=== PATIENT | male | born 1990 | race Caucasian/White ===

== ENCOUNTER 2016-12-18 23:50 | Emergency (ER) | payer SELFPAY ==
[~2016-12-18] VITALS: Ht 172.7 cm; Wt 58.2 kg
[2016-12-18 23:53] VITALS: Ht 172.7 cm; Wt 58.2 kg
[2016-12-19] MEDS ORDERED: ONDANSETRON 4 MG INJ IV STA (01:43)
[2016-12-19] MEDS ORDERED: KETOROLAC 15 MG INJ IV STA (01:43)
--- NOTE | 2016-12-19 01:48 | ERD ---
ER Documentation Chief Complaint Chief Complaint epigastric pain since yesterday, worse today HPI 26-year-old male patient presents to emergency department for evaluation of epigastric pain, sx started Tuesday after eating a [employer] cheese stake sandwich, patient reports that he is having shortness of breath secondary to the burning sensation in his chest. Patient denies any dizziness, palpitations, or cardiovascular history. ROS All systems reviewed and are negative except as per history of present illness. Allergies Allergies: Coded Allergies: No Known Drug Allergies (Verified Allergy, Unknown, 12/18/16) PMhx/Soc Medical and Surgical Hx: pt denies Medical Hx, pt denies Surgical Hx Hx Alcohol Use: Yes (occassional) Hx Substance Use: No Hx Tobacco Use: No Smoking Status: Never smoker Physical Exam Vitals Vital Signs Date Time Temp Pulse Resp B/P Pulse Ox O2 Delivery O2 Flow Rate FiO2 12/18/16 23:53 98.7 95 20 136/84 100 Stable, triage notes reviewed Physical Exam Const: Nourished well appearing 26-year-old male patient obvious discomfort no acute distress Head: Eyes: ENT: Normal External Ears, Nose and Mouth. Neck: Resp: Clear to auscultation bilaterally Cardio: 1-S2, no S3-S4 regular rate and rhythm, no murmurs Abd: Soft, epigastric tenderness no Ivey sign, skin: Back: Ext: Neur: Awake and alert Psych: Normal Mood and Affect Result Diagram: 12/19/16 0154 12/19/164 Results 24 hrs Laboratory Tests Test 12/19/16 01:52 12/19/16 01:54 Urine Color YELLOW Urine Clarity CLOUDY Urine pH 6.0 Urine Specific [place] 1.029 Urine Ketones NEGATIVEmg/dL Urine Nitrite NEGATIVEmg/dL Urine Bilirubin NEGATIVEmg/dL Urine Urobilinogen 1+mg/dL Urine Leukocyte Esterase NEGATIVELeu/ul Urine Microscopic RBC 1/HPF Urine Microscopic WBC 2/HPF Urine Mucus MANY/HPF Urine Hemoglobin NEGATIVEmg/dL Urine Glucose NEGATIVEmg/dL Urine Total Protein NEGATIVEmg/dl White Blood Count 8.410^3/ul Red Blood Count 5.2510^6/ul Hemoglobin 14.8g/dl Hematocrit 43.5% Mean Corpuscular Volume 82.9fl Mean Corpuscular Hemoglobin 28.2pg Mean Corpuscular Hemoglobin Concent 34.0g/dl Red Cell Distribution Width 13.6% Platelet Count 69812^3/UL Mean Platelet Volume 11.6fl Neutrophils % 75.2% Lymphocytes % 17.1% Monocytes % 6.4% Eosinophils % 0.6% Basophils % 0.2% Nucleated Red Blood Cells % 0.0/100WBC Neutrophils # 6.310^3/ul Lymphocytes # 1.410^3/ul Monocytes # 0.510^3/ul Eosinophils # 0.110^3/ul Basophils # 0.010^3/ul Nucleated Red Blood Cells # 0.010^3/ul Sodium Level 145mmol/L Potassium Level 3.5mmol/L Chloride Level 103mmol/L Carbon Dioxide Level 30mmol/L Anion Gap 16 Blood Urea Nitrogen 19mg/dl Creatinine 0.82mg/dl Glucose Level 102mg/dl Calcium Level 8.9mg/dl Total Bilirubin 0.4mg/dl Direct Bilirubin 0.00mg/dl Indirect Bilirubin 0.4mg/dl Aspartate Amino Transf (AST/SGOT) 32IU/L Alanine Aminotransferase (ALT/SGPT) 52IU/L Alkaline Phosphatase 70IU/L Total Protein 7.7g/dl Albumin 4.7g/dl Globulin 3.00g/dl Albumin/Globulin Ratio 1.56 Lipase 52U/L Current Medications Medications (Trade) Dose Ordered Sig/Sonya Route PRN Reason Start Time Stop Time Status Last Admin Dose Admin Ondansetron HCl (Zofran Inj) 4 mg ONCE STAT IV 12/19/16 01:43 12/19/16 01:47 DC 12/19/16 02:10 Ketorolac Tromethamine (Toradol) 15 mg ONCE STAT IV 12/19/16 01:43 12/19/16 01:47 DC 12/19/16 02:10 Pantoprazole (Protonix Iv) 40 mg ONCE ONCE IV 12/19/16 02:00 12/19/16 02:01 DC 12/19/16 02:11 Miscellaneous Medication (Gi Cocktail (2)) 40 ml ONCE ONCE PO 12/19/16 02:00 12/19/16 02:01 DC 12/19/16 02:11 Interpretation text CBC shows no evidence of hemorrhage or infection Chemistry shows no evidence of significant electrolyte abnormalities or renal insufficiency Liver function tests shows no evidence of acute biliary or hepatic dysfunction Lipase shows no evidence of acute pancreatitis Procedures/MDM A 6-year-old male patient presents to emergency department for epigastric pain that started on Tuesday after eating chili cheese steak, patient reports shortness of breath, pain in epigastric region, denies sour taste in his mouth or burning in his throat. Patient reports he gets occasional heartburn symptoms but never has had symptoms like this. Emergency room course includes history and physical exam I have low suspicion for acute [place] or acute coronary syndromes, patient treated with GI cocktail, IV Protonix, Zofran, and 15 mg of IV Toradol, routine emergency room labs obtained negative for hemorrhage, infection, electrolyte dysfunction, renal insufficiency, hepatitis, or pancreatitis. Urinalysis negative for evidence of action. Patient reassessed after interventions completed reports improvement of symptoms plan to discharge patient home with Zantac, Protonix, instructed to follow-up with primary care physician for full evaluation and treatment of epigastric pain. Patient is stable with no new complaints during ER course, clinically there is no current evidence to suggest meningitis, sepsis, acute abdomen, acute coronary syndromes , pulmonary embolism or any other emergent condition appearing to require further evaluation or hospitalization. I feel the patient is stable for discharge at this time. I have discussed results, examination findings, the treatment plan with the patient and family present prior to discharge. Indications for emergent reevaluation, side effects of medication were also discussed. All questions were answered. Patient verbalizes understanding and agrees with plan of care. Departure Diagnosis: Primary Impression: Epigastric abdominal pain Condition: Good Patient Instructions: Gerd (Adult), Gerd (Child) Referrals: [facility] Additional Instructions: Thank you for for coming to [facility] for your care today. Please ask your nurse or provider if you have questions about your care today and do not leave until all your questions have been answered. Please use any medications given as directed and follow-up with your doctor (or the doctor you were referred to) in the next 2-3 days. If you do not have a primary care doctor you may follow up at the [facility] (listed below). You may also use motrin and tylenol as needed for fever and/or pain unless instructed otherwise by your provider or nurse. Indications for more urgent follow-up have been discussed, but you may return to the Emergency Department at ANY time for any worrisome or worsening symptoms. If you have abdominal pain, please know that no test or exam you received is perfect and you should follow up within 8 hours for continued pain. If you had any imaging studies today, such as an X-Ray or CT Scan, these studies will be reviewed later by a radiologist. You will be called if there are important findings that were not identified today, so make sure the contact information you provided at registration is correct. If you received any narcotic pain control medicine today, such as Vicodin, Morphine or Dilaudid, your coordination and judgment may be affected for a number of hours. Please do not drive or operate heavy machinery, and you may want someone to assist you at home. If you were given a prescription for narcotic medication, be aware that it is very addictive- use sparingly and only if necessary. BOB ZHENG Dec 19, 2016 01:48 BOB ZHENG Dec 19, 2016 01:48
[2016-12-19] MEDS ORDERED: LIDOCAINE/MYLANTA 40 ML BTL PO ONE (02:00)
[2016-12-19] MEDS ORDERED: PANTOPRAZOLE 40 MG INJ IV ONE (02:00)
[2016-12-19] MEDS ORDERED: PANT40TA3 PO (04:49)
[2016-12-19] MEDS ORDERED: RANI150T9 PO (04:49)
== END 2016-12-19 05:04 | disposition home or self-care (01) ==
LOC: FTE 23:50
DX: R10.13 Epigastric pain (principal)
CPT/HCPCS: 80053; 81001; 83690; 85025; 96374; 96375; 99284; C9113; J1885; J2405